=== PATIENT | female | born 1940 | race Caucasian/White ===

== ENCOUNTER 2016-10-29 13:22 | Inpatient (IN) | payer OTHER ==
[~2016-10-29] VITALS: Ht 162.6 cm; Wt 94.6 kg
[2016-10-29] MEDS ORDERED: DIAZEPAM 5 MG/ML 2ML SYRG ONE (13:41)
[2016-10-29] MEDS ORDERED: DIAZEPAM 5 MG/ML 2ML SYRG IV ONE (14:00)
[2016-10-29 14:30] LABS: Basophils # (auto) 0.1 uL; Basophils % (auto) 0.5 % (0.0-2.0); CONDITION Y; Eosinophils # (auto) 0.1 uL; Eosinophils % (auto) 0.6 % (0.0-7.0); Hematocrit 37.5 % (36.0-46.0); Hemoglobin 12.3 g/dL (12.2-16.2); Lymphocytes # (auto) 1.6 uL; Lymphocytes % (auto) 17.1 % (10.0-50.0); Mean Corpuscular Hemoglobin 27.4 pg (28.0-32.0); Mean Corpuscular Hgb Conc. 32.9 g/dL (32.0-36.0); Mean Corpuscular Volume 83.2 fL (80.0-100.0); Mean Platelet Volume 8.9 fL (7.4-10.4); Monocytes # (auto) 0.5 uL; Monocytes % (auto) 5.6 % (0.0-12.0); Neutrophils # (auto) 7.2 uL; Neutrophils % (auto) 76.2 % (37.0-80.0); Platelet Count (auto) 284 10^3/uL (140-450); White Blood Cell 9.4 10^3/uL (4.4-10.8)
[2016-10-29] MEDS ORDERED: SODIUM CHLORIDE 0.9% 1,000 ML IV ONE ×2 (14:59)
[2016-10-29 15:04] LABS: Albumin 3.1 g/dL (3.4-5.0); Anion Gap 12 (5-15); Aspartate Aminotransferase 21 U/L (15-37); BUN/Creatinine Ratio 14.7; Blood Urea Nitrogen 17 mg/dL (7-18); Calcium 8.4 mg/dL (8.5-10.1); Carbon Dioxide 22 mmol/L (21-32); Chloride 111 mmol/L (98-107); GFR African American 58 mL/min; GFR Non-African American 48 mL/min; Glucose 107 mg/dL (74-106); Potassium 3.3 mmol/L (3.5-5.1); Sodium 145 mmol/L (136-145)
[2016-10-29 15:11] LABS: Alkaline Phosphatase 345 U/L (45-117); Bilirubin, Total 0.4 mg/dL (0.2-1.0); Total Protein 6.8 g/dL (6.4-8.2)
[2016-10-29] MEDS ORDERED: POTASSIUM CHL 10% (20 MEQ/15ML) ORAL SOLN PO ONE (16:45)
[2016-10-29] MEDS ORDERED: cloNIDine HCL 0.1 MG TAB PO ONE (17:15)
[2016-10-29] MEDS ORDERED: DEXTROSE (50%) 50ML SYRG IV PRN (20:00)
[2016-10-29] MEDS ORDERED: NITROGLYCERIN 0.4 MG SL TAB SL PRN (20:00)
[2016-10-29] MEDS ORDERED: MORPHINE SULFATE 4 MG/ML SYRG IV PRN ×2 (20:00)
[2016-10-29] MEDS ORDERED: DOCUSATE SOD 100 MG CAP PO PRN (20:00)
[2016-10-29] MEDS ORDERED: HYDROcodone-ACET 5/325MG TAB PO PRN (20:00)
[2016-10-29] MEDS ORDERED: TEMAZEPAM 15 MG CAP PO PRN (20:00)
[2016-10-29] MEDS ORDERED: ACETAMINOPHEN 325 MG TAB PO PRN (20:00)
[2016-10-29] MEDS ORDERED: ONDANSETRON HCL 4 MG/2 ML VIAL IV PRN (20:00)
[2016-10-29] MEDS: cloNIDine HCL 0.1 MG TAB PO PRN (20:27)
[2016-10-29 20:33] LABS: B-Type Natriuretic Peptide 57.47 pg/mL (0-100)
[2016-10-29 20:34] LABS: Temperature: 22.3 C (20.0-25.0)
[2016-10-29] MEDS: InsuLIN REG 1unit/0.01ml Soln (100units/ml) SC SCH (22:00)
[2016-10-29] MEDS: ACCU-CHEK COMFORT CURVE STRIP VI SCH (22:13)
[2016-10-29] MEDS: SODIUM CHLOR 0.9% PF (SALINE LOCK) 10ML VIAL IV SCH (22:13)
[2016-10-29] MEDS: FAMOTIDINE 20 MG TAB PO SCH (22:16)
[2016-10-29] MEDS ORDERED: INSLANTI SC (22:18)
[2016-10-29] MEDS ORDERED: ATOR40TA52 PO (22:19)
[2016-10-29] MEDS ORDERED: LOSA25TA9 PO (22:19)
[2016-10-30 02:32] LABS: Urine Bilirubin Negative (Negative); Urine Color Yellow (Yellow); Urine Glucose Normal (Normal); Urine Ketone Negative (Negative); Urine Mucus FEW (None Seen); Urine Nitrite Negative (Negative); Urine RBC 1 /hpf (0 - 4); Urine Squamous Epithelial Cell FEW /hpf (<5); Urine Urobilinogen Normal (Negative)
[2016-10-30 02:33] LABS: Urine Blood 2+ /uL (Negative)
[2016-10-30] MEDS: SODIUM CHLOR 0.9% PF (SALINE LOCK) 10ML VIAL IV SCH ×3 (05:55→22:32)
[2016-10-30 06:15] LABS: Basophils # (auto) 0 uL; Basophils % (auto) 0.3 % (0.0-2.0); CONDITION Y; Eosinophils # (auto) 0 uL; Eosinophils % (auto) 0.4 % (0.0-7.0); Hematocrit 38.1 % (36.0-46.0); Hemoglobin 12.6 g/dL (12.2-16.2); Lymphocytes # (auto) 1.6 uL; Lymphocytes % (auto) 18.1 % (10.0-50.0); Mean Corpuscular Hemoglobin 27.3 pg (28.0-32.0); Mean Corpuscular Volume 82.8 fL (80.0-100.0); Mean Platelet Volume 8.4 fL (7.4-10.4); Monocytes # (auto) 0.7 uL; Monocytes % (auto) 7.7 % (0.0-12.0); Neutrophils # (auto) 6.6 uL; Neutrophils % (auto) 73.5 % (37.0-80.0); Platelet Count (auto) 287 10^3/uL (140-450); Red Cell Distribution Width 16.1 % (11.6-16.0)
[2016-10-30 06:42] LABS: BUN/Creatinine Ratio 16.1; Bilirubin, Total 0.5 mg/dL (0.2-1.0); Calcium 8.4 mg/dL (8.5-10.1); Total Protein 6.7 g/dL (6.4-8.2)
[2016-10-30 06:44] LABS: Potassium 3.7 mmol/L (3.5-5.1)
[2016-10-30] MEDS: InsuLIN REG 1unit/0.01ml Soln (100units/ml) SC SCH ×4 (07:00→22:00)
[2016-10-30] MEDS: ACCU-CHEK COMFORT CURVE STRIP VI SCH ×4 (07:00→22:00)
[2016-10-30] MEDS: INSULIN DETEMIR(LEVEMIR) 1unit/0.01ml Soln (100units/ml) SC SCH (07:00)
[2016-10-30] MEDS: Boost Glucose Control 8 Ounces PO SCH ×3 (08:45→17:51)
[2016-10-30 11:56] VITALS: BP 160/74
[2016-10-30] MEDS: MULTIPLE VITAMIN TAB PO SCH (12:07)
[2016-10-30] MEDS: FAMOTIDINE 20 MG TAB PO SCH ×2 (12:07→21:40)
[2016-10-30] MEDS: ENOXAPARIN SOD 40 MG/0.4 ML SYRINGE SC SCH (12:08)
[2016-10-30] MEDS ORDERED: cefTRIAXone 1GM/50ML D5W 50 ML IV ONE (12:15)
[2016-10-30] MEDS ORDERED: LORazepam 2MG/ML-1ML VIAL IV PRN (15:15)
[2016-10-30] MEDS: SODIUM CHLORIDE 0.9% 1,000 ML IV SCH (15:41)
[2016-10-30 17:05] VITALS: BP 143/77
[2016-10-30 20:00] VITALS: BP 146/70
[2016-10-30 22:00] VITALS: BP 146/70
[2016-10-31 04:48] VITALS: BP 138/60
[2016-10-31] MEDS: SODIUM CHLOR 0.9% PF (SALINE LOCK) 10ML VIAL IV SCH ×3 (05:47→21:53)
[2016-10-31] MEDS: ACCU-CHEK COMFORT CURVE STRIP VI SCH ×4 (06:01→21:53)
[2016-10-31] MEDS: InsuLIN REG 1unit/0.01ml Soln (100units/ml) SC SCH ×4 (06:01→21:53)
[2016-10-31] MEDS: INSULIN DETEMIR(LEVEMIR) 1unit/0.01ml Soln (100units/ml) SC SCH (06:01)
[2016-10-31 07:03] LABS: Basophils # (auto) 0 uL; Basophils % (auto) 0.5 % (0.0-2.0); CONDITION Y; Eosinophils # (auto) 0.1 uL; Eosinophils % (auto) 2.5 % (0.0-7.0); Hemoglobin 11.8 g/dL (12.2-16.2); Lymphocytes # (auto) 1.6 uL; Lymphocytes % (auto) 28.4 % (10.0-50.0); Mean Corpuscular Hemoglobin 27.8 pg (28.0-32.0); Mean Corpuscular Hgb Conc. 33.7 g/dL (32.0-36.0); Mean Corpuscular Volume 82.5 fL (80.0-100.0); Mean Platelet Volume 8.9 fL (7.4-10.4); Monocytes # (auto) 0.5 uL; Monocytes % (auto) 9.1 % (0.0-12.0); Neutrophils # (auto) 3.3 uL; Neutrophils % (auto) 59.5 % (37.0-80.0); Platelet Count (auto) 274 10^3/uL (140-450); Red Cell Distribution Width 16.3 % (11.6-16.0); White Blood Cell 5.5 10^3/uL (4.4-10.8)
[2016-10-31 07:30] LABS: BUN/Creatinine Ratio 14.1; Calcium 8.4 mg/dL (8.5-10.1); Potassium 3.8 mmol/L (3.5-5.1)
[2016-10-31 08:00] VITALS: BP 138/60
[2016-10-31] MEDS: Boost Glucose Control 8 Ounces PO SCH ×3 (08:00→17:55)
[2016-10-31 09:00] VITALS: BP 154/74
[2016-10-31] MEDS: cefTRIAXone 1GM/50ML D5W 50 ML IV SCH (09:45)
[2016-10-31] MEDS: FAMOTIDINE 20 MG TAB PO SCH ×2 (09:45→21:53)
[2016-10-31] MEDS: MULTIPLE VITAMIN TAB PO SCH (09:45)
[2016-10-31] MEDS: ENOXAPARIN SOD 40 MG/0.4 ML SYRINGE SC SCH (09:46)
[2016-10-31] MEDS: cloNIDine HCL 0.1 MG TAB PO PRN ×2 (11:43→13:53)
[2016-10-31] MEDS ORDERED: LOSA50TA6 PO (11:54)
[2016-10-31] MEDS ORDERED: ASPI81TA27 PO (11:58)
[2016-10-31] MEDS: SODIUM CHLORIDE 0.9% 1,000 ML IV SCH (12:15)
[2016-10-31 13:00] VITALS: BP 162/79
[2016-10-31 17:00] VITALS: BP 154/85
[2016-10-31 22:00] VITALS: BP 131/80
[2016-11-01 05:00] VITALS: BP 148/78
[2016-11-01] MEDS: SODIUM CHLOR 0.9% PF (SALINE LOCK) 10ML VIAL IV SCH (06:33)
[2016-11-01] MEDS: InsuLIN REG 1unit/0.01ml Soln (100units/ml) SC SCH (06:33)
[2016-11-01] MEDS: ACCU-CHEK COMFORT CURVE STRIP VI SCH ×2 (06:33→11:30)
[2016-11-01] MEDS: INSULIN DETEMIR(LEVEMIR) 1unit/0.01ml Soln (100units/ml) SC SCH (06:34)
[2016-11-01 08:00] VITALS: BP 154/85
[2016-11-01] MEDS: Boost Glucose Control 8 Ounces PO SCH ×2 (08:00→12:00)
[2016-11-01 08:43] VITALS: BP 163/84
[2016-11-01] MEDS: ENOXAPARIN SOD 40 MG/0.4 ML SYRINGE SC SCH (09:44)
[2016-11-01] MEDS: MULTIPLE VITAMIN TAB PO SCH (09:44)
[2016-11-01] MEDS: cefTRIAXone 1GM/50ML D5W 50 ML IV SCH (09:44)
[2016-11-01] MEDS: FAMOTIDINE 20 MG TAB PO SCH (09:44)
[2016-11-01] MEDS: SODIUM CHLORIDE 0.9% 1,000 ML IV SCH (12:15)
[2016-11-01 14:20] VITALS: BP 161/68
[2016-11-01 16:13] VITALS: BP 154/85
[2016-11-01 17:00] VITALS: BP 187/85
== END 2016-11-01 18:15 | disposition home health service (06) | DRG 689 ==
LOC: EDBD 13:22 → ER 13:27 → TELE 13:28 → TELE-E-ADS 10-30 10:50 → OVERFLOW 10-30 14:27 → TELE-E-ADS 10-30 14:30 → TELE-WESTW 10-30 15:20
PROVIDERS: ADMIT Internal Medicine; ATTEND Internal Medicine
DX: N39.0 Urinary tract infection, site not specified (principal); G93.41 Metabolic encephalopathy; G45.9 Transient cerebral ischemic attack, unspecified; E44.0 Moderate protein-calorie malnutrition; E87.6 Hypokalemia; N18.3 Chronic kidney disease, stage 3 (moderate); E78.5 Hyperlipidemia, unspecified; Z79.4 Long term (current) use of insulin; Z82.49 Family history of ischemic heart disease and other diseases of the circulatory system; Z83.3 Family history of diabetes mellitus; I12.9 Hypertensive chronic kidney disease with stage 1 through stage 4 chronic kidney disease, or unspecified chronic kidney disease; E11.21 Type 2 diabetes mellitus with diabetic nephropathy; E11.22 Type 2 diabetes mellitus with diabetic chronic kidney disease; Z90.49 Acquired absence of other specified parts of digestive tract; Z79.899 Other long term (current) drug therapy; Z84.1 Family history of disorders of kidney and ureter; Z80.9 Family history of malignant neoplasm, unspecified; Z79.82 Long term (current) use of aspirin; Z68.35 Body mass index [BMI] 35.0-35.9, adult
CPT/HCPCS: 36415; 70450; 70551; 71010; 80048; 80053; 80307; 80320; 81001; 82962; 83036; 83880; 84443; 84484; 85025; 87086; 92610; 93306; 93886; 95819; 96361; 96374; 97163; J0696; J1815; J2405

== ENCOUNTER 2018-07-26 16:07 | Emergency (ER) | payer OTHER ==
[~2018-07-26] VITALS: Ht 157.5 cm; Wt 95.3 kg
[~2018-07-26 16:07] MED LIST: ASPI81TA27 PO; ATOR40TA52 PO; INSLANTI SC; LOSA-46 PO
[2018-07-26 17:12] LABS: Albumin 3.2 g/dL (3.4-5.0); Anion Gap 7 (5-15); Blood Urea Nitrogen 17 mg/dL (7-18); Calcium 8.2 mg/dL (8.5-10.1); Carbon Dioxide 24 mmol/L (21-32); Chloride 111 mmol/L (98-107); Glucose 126 mg/dL (74-106); Potassium 3.6 mmol/L (3.5-5.1); Sodium 142 mmol/L (136-145)
[2018-07-26 17:19] LABS: Alanine Aminotransferase 33 U/L (13-56); Alkaline Phosphatase 351 U/L (45-117); Aspartate Aminotransferase 26 U/L (15-37); BUN/Creatinine Ratio 14.4; Bilirubin, Total 0.4 mg/dL (0.2-1.0); GFR African American 57 mL/min; GFR Non-African American 47 mL/min; Total Protein 7.3 g/dL (6.4-8.2)
[2018-07-26 17:43] LABS: Basophils # (auto) 0.1 uL; Basophils % (auto) 1.2 % (0.0-2.0); Eosinophils # (auto) 0.1 uL; Eosinophils % (auto) 0.8 % (0.0-7.0); Hematocrit 41.1 % (36.0-46.0); Hemoglobin 13.4 g/dL (12.2-16.2); Lymphocytes # (auto) 1.8 uL; Lymphocytes % (auto) 19.5 % (10.0-50.0); Mean Corpuscular Hemoglobin 28.4 pg (28.0-32.0); Mean Corpuscular Hgb Conc. 32.5 g/dL (32.0-36.0); Mean Corpuscular Volume 87.5 fL (80.0-100.0); Monocytes # (auto) 0.6 uL; Monocytes % (auto) 6.5 % (0.0-12.0); Neutrophils # (auto) 6.8 uL; Nucleated Red Blood Cells % 0.7 %; Platelet Count (auto) 292 10^3/uL (140-450); Red Cell Distribution Width 15.1 % (11.8-14.3); White Blood Cell 9.4 10^3/uL (4.4-10.8)
[2018-07-26] MEDS ORDERED: SODIUM CHLORIDE 0.9% 1,000 ML IV ONE (18:30)
[2018-07-26 19:56] LABS: Urine Bacteria MOD /hpf (None Seen); Urine Blood Negative /uL (Negative); Urine Specific Gravity 1.014 (1.001-1.035); Urine WBC 11 /hpf (0 - 5)
[2018-07-26] MEDS ORDERED: KETOROLAC TROMETH 60MG/2ML VIAL IM ONE (20:00)
[2018-07-26] MEDS ORDERED: cefTRIAXone 1GM/50ML D5W 50 ML IV ONE (20:15)
[2018-07-26 20:35] VITALS: BP 166/99
== END 2018-07-26 22:35 | disposition home or self-care (01) ==
LOC: EDBD 16:07 → ER 16:07
DX: E11.649 Type 2 diabetes mellitus with hypoglycemia without coma (principal); N39.0 Urinary tract infection, site not specified; E78.5 Hyperlipidemia, unspecified; I10 Essential (primary) hypertension; Z90.49 Acquired absence of other specified parts of digestive tract; Z79.4 Long term (current) use of insulin
CPT/HCPCS: 36415; 70450; 71045; 80053; 81001; 82962; 83880; 84484; 85025; 93005; 96361; 96365; 99284; J0696; J7030

== ENCOUNTER 2020-05-22 12:03 | Inpatient (IN) | payer OTHER ==
[~2020-05-22] VITALS: Ht 162.6 cm; Wt 74.8 kg
[~2020-05-22 12:03] MED LIST changes: +ASPI-543 PO; -ASPI81TA27 PO; -LOSA-46 PO; +LOSA-69 PO
[2020-05-22] MEDS ORDERED: SODIUM CHLORIDE 0.9% 1,000 ML IV ONE (12:15)
[2020-05-22 13:15] LABS: Basophils # (auto) 0 10 ^3/uL (0-0.2); Basophils % (auto) 0.6 % (0.0-2.0); Eosinophils # (auto) 0.1 10 ^3/uL (0-0.8); Hematocrit 45.3 % (36.0-46.0); Hemoglobin 14.8 g/dL (12.2-16.2); Lymphocytes # (auto) 1.8 10 ^3/uL (0.4-5.4); Lymphocytes % (auto) 28.1 % (10.0-50.0); Mean Corpuscular Hemoglobin 28.6 pg (28.0-32.0); Mean Corpuscular Hgb Conc. 32.7 g/dL (32.0-36.0); Mean Corpuscular Volume 87.6 fL (80.0-100.0); Monocytes # (auto) 0.5 10 ^3/uL (0-1.3); Monocytes % (auto) 7.7 % (0.0-12.0); Neutrophils % (auto) 62.6 % (37.0-80.0); Nucleated Red Blood Cells % 0.1 %; Platelet Count (auto) 265 10^3/uL (140-450); Red Blood Cells 5.17 10^6/uL (4.0-5.20); Red Cell Distribution Width 13.8 % (11.8-14.3); White Blood Cell 6.4 10^3/uL (4.4-10.8)
[2020-05-22 13:29] LABS: Albumin 2.9 g/dL (3.4-5.0); Anion Gap 5 (5-15); Blood Urea Nitrogen 14 mg/dL (7-18); Calcium 8.3 mg/dL (8.5-10.1); Carbon Dioxide 26 mmol/L (21-32); Chloride 104 mmol/L (98-107); Glucose 398 mg/dL (74-106); Potassium 4.1 mmol/L (3.5-5.1); Sodium 135 mmol/L (136-145)
[2020-05-22 13:35] LABS: Alanine Aminotransferase 18 U/L (13-56); Alkaline Phosphatase 266 U/L (45-117); Aspartate Aminotransferase 13 U/L (15-37); BUN/Creatinine Ratio 9.6; Bilirubin, Total 0.5 mg/dL (0.2-1.0); GFR African American 44 mL/min; GFR Non-African American 37 mL/min; Total Protein 7.1 g/dL (6.4-8.2)
[2020-05-22 14:02] LABS: INR 1.02 (0.9-1.15); Partial Thromboplastin Time 23.8 sec (23.0-31.2)
[2020-05-22 14:48] LABS: Urine Bacteria NONE SEEN /hpf (None Seen); Urine Blood Negative /uL (Negative); Urine Specific Gravity 1.018 (1.001-1.035); Urine WBC 1 /hpf (0 - 5)
[2020-05-22] MEDS ORDERED: ASPirin 81 mg TAB PO ONE (15:45)
[2020-05-22] MEDS ORDERED: MORPHINE SULF INJ 2 MG/ML SYRINGE 1ML IV PRN (17:00)
[2020-05-22] MEDS ORDERED: NITROGLYCERIN 0.4 MG SL TAB SL PRN (17:00)
[2020-05-22] MEDS ORDERED: ACCU-CHEK COMFORT CURVE STRIP VI SCH (17:23)
[2020-05-22] MEDS ORDERED: InsuLIN REG 1unit/0.01ml Soln (100units/ml) SC SCH (17:23)
[2020-05-22] MEDS ORDERED: DEXTROSE (50%) 50ML SYRG IV PRN ×2 (17:30→18:15)
[2020-05-22] MEDS ORDERED: hydrALAZINE HCL 20 MG/ML VL IV PRN (17:45)
[2020-05-22] MEDS ORDERED: InsuLIN REG 1unit/0.01ml Soln (100units/ml) SC ONE (18:15)
[2020-05-22] MEDS: InsuLIN REG 1unit/0.01ml Soln (100units/ml) SC SCH (21:30)
[2020-05-22] MEDS: ACCU-CHEK COMFORT CURVE STRIP VI SCH (21:31)
[2020-05-22 23:39] LABS: Cholesterol 228 mg/dL (< 200); HDL Cholesterol 52 mg/dL (40-59); LDL Cholesterol 162 mg/dL (< 100); Triglycerides 97 mg/dL (< 150)
[2020-05-23] MEDS: ACCU-CHEK COMFORT CURVE STRIP VI SCH ×4 (05:53→21:32)
[2020-05-23] MEDS: InsuLIN REG 1unit/0.01ml Soln (100units/ml) SC SCH ×4 (05:54→21:33)
[2020-05-23 07:18] LABS: Basophils # (auto) 0.1 10 ^3/uL (0-0.2); Basophils % (auto) 0.6 % (0.0-2.0); Eosinophils # (auto) 0 10 ^3/uL (0-0.8); Eosinophils % (auto) 0.1 % (0.0-7.0); Hematocrit 40.9 % (36.0-46.0); Hemoglobin 13.7 g/dL (12.2-16.2); Lymphocytes # (auto) 0.8 10 ^3/uL (0.4-5.4); Lymphocytes % (auto) 8.7 % (10.0-50.0); Mean Corpuscular Hemoglobin 28.9 pg (28.0-32.0); Mean Corpuscular Hgb Conc. 33.6 g/dL (32.0-36.0); Mean Corpuscular Volume 86.1 fL (80.0-100.0); Monocytes # (auto) 0.3 10 ^3/uL (0-1.3); Monocytes % (auto) 3.5 % (0.0-12.0); Neutrophils % (auto) 87.1 % (37.0-80.0); Platelet Count (auto) 258 10^3/uL (140-450); Red Blood Cells 4.75 10^6/uL (4.0-5.20); Red Cell Distribution Width 14.1 % (11.8-14.3); White Blood Cell 9.1 10^3/uL (4.4-10.8)
[2020-05-23 07:32] LABS: BUN/Creatinine Ratio 14.4; Calcium 8.5 mg/dL (8.5-10.1); Potassium 3.5 mmol/L (3.5-5.1)
[2020-05-23] MEDS: INSULIN LANTUS (GLARGINE) 1 /0.01ml (100units/ml) SC SCH (08:00)
[2020-05-23] MEDS ORDERED: LOSARTAN POTASSIUM 50 MG TAB PO SCH (10:00)
[2020-05-23] MEDS ORDERED: cefTRIAXone 1GM/50ML D5W 50 ML IV SCH (10:00)
[2020-05-23] MEDS ORDERED: PATIENTS OWN MEDICATION (Atorvastatin Calcium 40 MG) PO SCH (10:00)
[2020-05-23] MEDS: ASPirin 81 mg TAB PO SCH (10:22)
[2020-05-23] MEDS: PIPERACILLIN-TAZOB 3.375GM 100 ML IV SCH ×3 (10:22→23:57)
[2020-05-23] MEDS ORDERED: LORazepam 2MG/ML-1ML VIAL IM ONE (17:45)
[2020-05-23] MEDS ORDERED: LORazepam 2MG/ML-1ML VIAL IV ONE (18:30)
[2020-05-23 22:00] VITALS: BP 100/59
[2020-05-23] MEDS ORDERED: ATORVASTATIN 20 MG TAB PO SCH (22:00)
[2020-05-24 05:00] VITALS: BP 128/59
[2020-05-24] MEDS: PIPERACILLIN-TAZOB 3.375GM 100 ML IV SCH ×2 (06:22→12:24)
[2020-05-24] MEDS: ACCU-CHEK COMFORT CURVE STRIP VI SCH ×2 (06:23→11:27)
[2020-05-24] MEDS: InsuLIN REG 1unit/0.01ml Soln (100units/ml) SC SCH ×2 (06:24→11:30)
[2020-05-24] MEDS: INSULIN LANTUS (GLARGINE) 1 /0.01ml (100units/ml) SC SCH (06:24)
[2020-05-24] MEDS: ASPirin 81 mg TAB PO SCH (09:55)
== END 2020-05-24 16:56 | disposition home or self-care (01) | DRG 69 ==
LOC: ER 12:03 → TELE 16:58 → TELE-CENTR 05-23 16:51 → TELE-EAST 05-23 18:40
PROVIDERS: ADMIT Internal Medicine; ATTEND Internal Medicine
DX: G45.9 Transient cerebral ischemic attack, unspecified (principal); G93.41 Metabolic encephalopathy; I10 Essential (primary) hypertension; E78.5 Hyperlipidemia, unspecified; Z20.822 Contact with and (suspected) exposure to COVID-19; Z82.49 Family history of ischemic heart disease and other diseases of the circulatory system; Z83.3 Family history of diabetes mellitus; Z79.4 Long term (current) use of insulin; E11.65 Type 2 diabetes mellitus with hyperglycemia; N19 Unspecified kidney failure; E86.0 Dehydration
CPT/HCPCS: 36415; 51702; 70450; 70551; 71045; 80048; 80053; 80061; 81001; 82962; 83036; 84484; 85025; 85610; 85730; 87040; 87426; 93306; 93886; 96360; 96361; G0378; J1815; J2543

== ENCOUNTER 2020-06-03 09:19 | Inpatient (IN) | payer OTHER ==
[~2020-06-03] VITALS: Ht 157.5 cm; Wt 73.1 kg
[2020-06-03] MEDS ORDERED: PANTOPRAZOLE 40 MG/10 ML VIAL INJ IV ONE ×2 (09:59→10:00)
[2020-06-03] MEDS ORDERED: ONDANSETRON HCL 4 MG/2 ML VIAL ONE (09:59)
[2020-06-03] MEDS ORDERED: ONDANSETRON HCL 4 MG/2 ML VIAL IV ONE (10:00)
[2020-06-03] MEDS ORDERED: SODIUM CHLORIDE 0.9% 1,000 ML IV ONE ×2 (10:00→15:45)
[2020-06-03 10:35] LABS: Basophils # (auto) 0.1 10 ^3/uL (0-0.2); Basophils % (auto) 0.5 % (0.0-2.0); Eosinophils # (auto) 0 10 ^3/uL (0-0.8); Hematocrit 46.3 % (36.0-46.0); Lymphocytes # (auto) 1.7 10 ^3/uL (0.4-5.4); Lymphocytes % (auto) 10.3 % (10.0-50.0); Mean Corpuscular Hemoglobin 28.6 pg (28.0-32.0); Mean Corpuscular Hgb Conc. 32.3 g/dL (32.0-36.0); Mean Corpuscular Volume 88.4 fL (80.0-100.0); Monocytes # (auto) 0.7 10 ^3/uL (0-1.3); Monocytes % (auto) 4.4 % (0.0-12.0); Neutrophils # (auto) 13.9 10 ^3/uL (1.6-8.6); Neutrophils % (auto) 84.8 % (37.0-80.0); Platelet Count (auto) 344 10^3/uL (140-450); Red Blood Cells 5.24 10^6/uL (4.0-5.20); Red Cell Distribution Width 14.4 % (11.8-14.3); White Blood Cell 16.4 10^3/uL (4.4-10.8)
[2020-06-03 10:53] LABS: INR 1.06 (0.9-1.15); Partial Thromboplastin Time 23.4 sec (23.0-31.2)
[2020-06-03 10:58] LABS: Albumin 3.4 g/dL (3.4-5.0); Anion Gap 14 (5-15); Blood Urea Nitrogen 29 mg/dL (7-18); Carbon Dioxide 21 mmol/L (21-32); Chloride 99 mmol/L (98-107); Magnesium 2.2 mg/dL (1.6-2.6); Potassium 4.3 mmol/L (3.5-5.1); Sodium 134 mmol/L (136-145)
[2020-06-03 11:04] LABS: Lactic Acid w/Reflex 5.4 mmol/L (0.4-2.0)
[2020-06-03 11:04] LABS: Alanine Aminotransferase 22 U/L (13-56); Alkaline Phosphatase 276 U/L (45-117); Aspartate Aminotransferase 13 U/L (15-37); BUN/Creatinine Ratio 13.7; Bilirubin, Total 0.4 mg/dL (0.2-1.0); GFR African American 30 mL/min; GFR Non-African American 25 mL/min
[2020-06-03 11:09] LABS: Glucose 480 mg/dL (74-106)
[2020-06-03 11:10] LABS: Urine Bacteria FEW /hpf (None Seen); Urine Blood Negative /uL (Negative); Urine Hyaline Cast MOD /lpf (0 - 2); Urine Mucus FEW (None Seen); Urine Specific Gravity 1.021 (1.001-1.035); Urine WBC 7 /hpf (0 - 5)
[2020-06-03 11:18] LABS: Alcohol, Urine < 3.0 mg/dL (0-10); Amphetamine Screen, Urine NEGATIVE (NEGATIVE); Barbiturate Scree,Urine NEGATIVE (NEGATIVE); Benzodiazephine Screen, Urine NEGATIVE (NEGATIVE); Cannabinoid Screen, Urine NEGATIVE (NEGATIVE); Cocaine Screen, Urine NEGATIVE (NEGATIVE); Opiate Scree,Urine NEGATIVE (NEGATIVE); Phencyclidine Screen, Urine NEGATIVE (NEGATIVE)
[2020-06-03] MEDS ORDERED: InsuLIN REG 1unit/0.01ml Soln (100units/ml) IV ONE (12:15)
[2020-06-03] MEDS ORDERED: cefTRIAXone 1GM/50ML D5W 50 ML IV ONE (15:45)
[2020-06-03] MEDS ORDERED: NITROGLYCERIN 0.4 MG SL TAB SL PRN (15:45)
[2020-06-03] MEDS ORDERED: SODIUM CHLORIDE 0.9% 2,000 ML IV ONE (15:45)
[2020-06-03] MEDS ORDERED: DEXTROSE (50%) 50ML SYRG IV PRN (15:45)
[2020-06-03] MEDS ORDERED: MORPHINE SULF INJ 2 MG/ML SYRINGE 1ML IV PRN (15:45)
[2020-06-03 15:46] LABS: Lactic Acid w/Reflex 2.5 mmol/L (0.4-2.0)
[2020-06-03] MEDS ORDERED: PIPERACILLIN-TAZOB 2.25GM 50 ML IV ONE (16:15)
[2020-06-03 17:24] LABS: Anion Gap 14 (5-15); BUN/Creatinine Ratio 18.6; Blood Urea Nitrogen 29 mg/dL (7-18); Calcium 8.4 mg/dL (8.5-10.1); Carbon Dioxide 20 mmol/L (21-32); Chloride 105 mmol/L (98-107); GFR African American 41 mL/min; GFR Non-African American 34 mL/min; Glucose 270 mg/dL (74-106); Potassium 4.1 mmol/L (3.5-5.1); Sodium 139 mmol/L (136-145)
[2020-06-03] MEDS: InsuLIN REG 1unit/0.01ml Soln (100units/ml) SC SCH (17:42)
[2020-06-03] MEDS: ACCU-CHEK COMFORT CURVE STRIP VI SCH ×2 (17:45→22:36)
[2020-06-03] MEDS ORDERED: INSULIN LANTUS (GLARGINE) 1 /0.01ml (100units/ml) SC ONE (19:00)
[2020-06-03] MEDS ORDERED: InsuLIN REG 1unit/0.01ml Soln (100units/ml) SC SCH (22:00)
[2020-06-03] MEDS: PIPERACILLIN-TAZOB 2.25GM 50 ML IV SCH (22:37)
[2020-06-04] VITALS (8 sets, daily range): BP systolic 129–146; BP diastolic 68–72
[2020-06-04] MEDS: PIPERACILLIN-TAZOB 2.25GM 50 ML IV SCH ×3 (04:30→16:45)
[2020-06-04] MEDS: ACCU-CHEK COMFORT CURVE STRIP VI SCH ×3 (06:21→16:45)
[2020-06-04] MEDS: InsuLIN REG 1unit/0.01ml Soln (100units/ml) SC SCH ×3 (06:48→16:46)
[2020-06-04 09:03] LABS: BUN/Creatinine Ratio 16.8; Calcium 7.9 mg/dL (8.5-10.1); Potassium 3.9 mmol/L (3.5-5.1)
[2020-06-04 09:12] LABS: Basophils # (auto) 0.1 10 ^3/uL (0-0.2); Basophils % (auto) 0.7 % (0.0-2.0); Eosinophils # (auto) 0.1 10 ^3/uL (0-0.8); Eosinophils % (auto) 0.5 % (0.0-7.0); Hematocrit 35.4 % (36.0-46.0); Hemoglobin 11.9 g/dL (12.2-16.2); Lymphocytes # (auto) 1.8 10 ^3/uL (0.4-5.4); Lymphocytes % (auto) 17.7 % (10.0-50.0); Mean Corpuscular Hemoglobin 29.2 pg (28.0-32.0); Mean Corpuscular Hgb Conc. 33.7 g/dL (32.0-36.0); Mean Corpuscular Volume 86.7 fL (80.0-100.0); Monocytes # (auto) 0.8 10 ^3/uL (0-1.3); Monocytes % (auto) 7.5 % (0.0-12.0); Neutrophils # (auto) 7.5 10 ^3/uL (1.6-8.6); Neutrophils % (auto) 73.6 % (37.0-80.0); Platelet Count (auto) 222 10^3/uL (140-450); Red Blood Cells 4.08 10^6/uL (4.0-5.20); Red Cell Distribution Width 14.2 % (11.8-14.3); White Blood Cell 10.1 10^3/uL (4.4-10.8)
[2020-06-04] MEDS ORDERED: cefTRIAXone 1GM/50ML D5W 50 ML IV SCH (10:00)
== END 2020-06-04 20:12 | disposition home health service (06) | DRG 637 ==
LOC: EDUNIT# 09:19 → EDBD 09:19 → ER 09:19 → TELE 15:42 → TELE-EAST 06-04 02:18
PROVIDERS: ADMIT Internal Medicine; ATTEND Internal Medicine
DX: E11.65 Type 2 diabetes mellitus with hyperglycemia (principal); G93.41 Metabolic encephalopathy; E87.2 Acidosis; N17.9 Acute kidney failure, unspecified; E78.5 Hyperlipidemia, unspecified; E86.0 Dehydration; I10 Essential (primary) hypertension; J44.9 Chronic obstructive pulmonary disease, unspecified; Z79.4 Long term (current) use of insulin; Z82.49 Family history of ischemic heart disease and other diseases of the circulatory system; Z83.3 Family history of diabetes mellitus; Z86.61 Personal history of infections of the central nervous system; Z90.49 Acquired absence of other specified parts of digestive tract; K44.9 Diaphragmatic hernia without obstruction or gangrene; K57.30 Diverticulosis of large intestine without perforation or abscess without bleeding; Z20.822 Contact with and (suspected) exposure to COVID-19; Z79.82 Long term (current) use of aspirin; F03.90 Unspecified dementia, unspecified severity, without behavioral disturbance, psychotic disturbance, mood disturbance, and anxiety
CPT/HCPCS: 36415; 36600; 51702; 70450; 71045; 74176; 80048; 80053; 80307; 80320; 81001; 82805; 82962; 83605; 83735; 84484; 85025; 85610; 85730; 87040; 87426; 96361; 96374; 96375; C9113; G0378; J1815; J2405; J2543

== ENCOUNTER 2020-12-26 18:53 | Emergency (ER) | payer OTHER ==
[~2020-12-26] VITALS: Ht 167.6 cm; Wt 81.6 kg
[2020-12-26 22:25] LABS: Basophils # (auto) 0.1 10 ^3/uL (0-0.2); Basophils % (auto) 0.7 % (0.0-2.0); Eosinophils # (auto) 0.2 10 ^3/uL (0-0.8); Eosinophils % (auto) 2.5 % (0.0-7.0); Hematocrit 36.6 % (36.0-46.0); Hemoglobin 12.1 g/dL (12.2-16.2); Mean Corpuscular Volume 84.9 fL (80.0-100.0); Monocytes # (auto) 0.7 10 ^3/uL (0-1.3); Monocytes % (auto) 7.9 % (0.0-12.0); Neutrophils # (auto) 6.1 10 ^3/uL (1.6-8.6); Neutrophils % (auto) 66.9 % (37.0-80.0); Red Blood Cells 4.32 10^6/uL (4.0-5.20); Red Cell Distribution Width 14.4 % (11.8-14.3); White Blood Cell 9.1 10^3/uL (4.4-10.8)
[2020-12-26 22:40] LABS: Alanine Aminotransferase 64 U/L (13-56); Albumin 2.7 g/dL (3.4-5.0); Anion Gap 4 (5-15); Blood Urea Nitrogen 37 mg/dL (7-18); Calcium 8.3 mg/dL (8.5-10.1); Carbon Dioxide 26 mmol/L (21-32); Chloride 110 mmol/L (98-107); Glucose 251 mg/dL (74-106); Potassium 4.5 mmol/L (3.5-5.1); Sodium 140 mmol/L (136-145)
[2020-12-26 22:45] LABS: Alkaline Phosphatase 423 U/L (45-117); Aspartate Aminotransferase 29 U/L (15-37); BUN/Creatinine Ratio 19.1; Bilirubin, Total 0.2 mg/dL (0.2-1.0); GFR African American 32 mL/min; GFR Non-African American 26 mL/min; Total Protein 6.6 g/dL (6.4-8.2)
[2020-12-26] MEDS ORDERED: TETANUS-DIPTH-ACEL PERTUSSIS 0.5ML SYR Tdap IM ONE (23:00)
[2020-12-27 01:40] VITALS: BP 175/98
== END 2020-12-27 01:57 | disposition home or self-care (01) ==
LOC: EDBD 18:53 → ER 18:56
DX: S51.812A Laceration without foreign body of left forearm, initial encounter (principal); S09.90XA Unspecified injury of head, initial encounter; R07.89 Other chest pain; E11.9 Type 2 diabetes mellitus without complications; I10 Essential (primary) hypertension; Z86.73 Personal history of transient ischemic attack (TIA), and cerebral infarction without residual deficits; W01.0XXA Fall on same level from slipping, tripping and stumbling without subsequent striking against object, initial encounter; Y93.89 Activity, other specified; Y92.89 Other specified places as the place of occurrence of the external cause; Y99.8 Other external cause status
CPT/HCPCS: 12001; 36415; 70450; 71045; 72125; 80053; 83880; 84484; 85025; 90471; 90715; 93005

== ENCOUNTER 2021-06-06 17:58 | Inpatient (IN) | payer OTHER ==
[~2021-06-06] VITALS: Ht 172.7 cm; Wt 82.6 kg
[2021-06-06 18:49] LABS: Basophils # (auto) 0 10 ^3/uL (0-0.2); Basophils % (auto) 0.4 % (0.0-2.0); Eosinophils # (auto) 0 10 ^3/uL (0-0.8); Eosinophils % (auto) 0.1 % (0.0-7.0); Hematocrit 32.2 % (36.0-46.0); Hemoglobin 10.4 g/dL (12.2-16.2); Lymphocytes # (auto) 0.4 10 ^3/uL (0.4-5.4); Lymphocytes % (auto) 3.1 % (10.0-50.0); Mean Corpuscular Hemoglobin 27.9 pg (28.0-32.0); Mean Corpuscular Hgb Conc. 32.3 g/dL (32.0-36.0); Mean Corpuscular Volume 86.4 fL (80.0-100.0); Monocytes # (auto) 0.4 10 ^3/uL (0-1.3); Monocytes % (auto) 3.3 % (0.0-12.0); Neutrophils # (auto) 12.2 10 ^3/uL (1.6-8.6); Neutrophils % (auto) 93.1 % (37.0-80.0); Red Blood Cells 3.73 10^6/uL (4.0-5.20); Red Cell Distribution Width 14.7 % (11.8-14.3); White Blood Cell 13.1 10^3/uL (4.4-10.8)
[2021-06-06] MEDS ORDERED: SODIUM CHLORIDE 0.9% 1,000 ML IV ONE (19:00)
[2021-06-06] MEDS ORDERED: ACETAMINOPHEN 650 MG RECT SUPP PR ONE (19:00)
[2021-06-06 19:34] LABS: Urine Bacteria MANY /hpf (None Seen); Urine Blood 2+ /uL (Negative); Urine Hyaline Cast MANY /lpf (0 - 2); Urine Mucus MANY (None Seen); Urine WBC 31 /hpf (0 - 5)
[2021-06-06 19:36] LABS: Amphetamine Screen, Urine NEGATIVE (NEGATIVE); Barbiturate Scree,Urine NEGATIVE (NEGATIVE); Benzodiazephine Screen, Urine NEGATIVE (NEGATIVE); Cannabinoid Screen, Urine NEGATIVE (NEGATIVE); Cocaine Screen, Urine NEGATIVE (NEGATIVE); Opiate Scree,Urine NEGATIVE (NEGATIVE); Phencyclidine Screen, Urine NEGATIVE (NEGATIVE)
[2021-06-06 19:50] LABS: Alanine Aminotransferase 34 U/L (13-56); Alkaline Phosphatase 312 U/L (45-117); Anion Gap 6 (5-15); Aspartate Aminotransferase 35 U/L (15-37); BUN/Creatinine Ratio 15.9; Blood Urea Nitrogen 43 mg/dL (7-18); Carbon Dioxide 21 mmol/L (21-32); Chloride 114 mmol/L (98-107); GFR African American 22 mL/min; GFR Non-African American 18 mL/min; Glucose 309 mg/dL (74-106); Potassium 4.1 mmol/L (3.5-5.1); Sodium 141 mmol/L (136-145)
[2021-06-06 19:51] LABS: Albumin 2.4 g/dL (3.4-5.0); Bilirubin, Total 0.3 mg/dL (0.2-1.0); Calcium 7.9 mg/dL (8.5-10.1)
[2021-06-06] MEDS ORDERED: cefTRIAXone SOD 1,000 MG VL IV ONE (20:00)
[2021-06-06 21:16] LABS: Lactic Acid w/Reflex 2.7 mmol/L (0.4-2.0)
[2021-06-06] MEDS ORDERED: NITROGLYCERIN 0.4 MG SL TAB SL PRN (21:30)
[2021-06-06] MEDS ORDERED: ONDANSETRON HCL 4 MG/2 ML VIAL IV PRN (21:30)
[2021-06-06] MEDS ORDERED: DEXTROSE (50%) 50ML SYRG IV PRN (21:30)
[2021-06-06] MEDS ORDERED: LABETALOL HCL 5 MG/ML 4ML SYRINGE IV ONE (21:30)
[2021-06-06] MEDS ORDERED: MORPHINE SULFATE INJECTION 2 MG/ML SYRG IV PRN (21:30)
[2021-06-06] MEDS ORDERED: ACETAMINOPHEN 325 MG TAB PO PRN (21:30)
[2021-06-06] MEDS ORDERED: FUROSEMIDE 40 MG/4 ML VIAL IV ONE (21:30)
[2021-06-06] MEDS: ATORVASTATIN 20 MG TAB PO SCH (22:00)
[2021-06-07] MEDS: InsuLIN REG 1unit/0.01ml Soln (100units/ml) SC SCH ×4 (00:40→17:38)
[2021-06-07] MEDS: ACCU-CHEK COMFORT CURVE STRIP VI SCH ×4 (00:40→17:38)
[2021-06-07 05:19] VITALS: BP 97/74
[2021-06-07 08:46] VITALS: BP 132/69
[2021-06-07 09:12] LABS: Basophils # (auto) 0.1 10 ^3/uL (0-0.2); Basophils % (auto) 0.8 % (0.0-2.0); Eosinophils # (auto) 0 10 ^3/uL (0-0.8); Eosinophils % (auto) 0.2 % (0.0-7.0); Hematocrit 26.4 % (36.0-46.0); Lymphocytes # (auto) 1.6 10 ^3/uL (0.4-5.4); Lymphocytes % (auto) 15.3 % (10.0-50.0); Mean Corpuscular Hemoglobin 28.8 pg (28.0-32.0); Mean Corpuscular Hgb Conc. 34.2 g/dL (32.0-36.0); Mean Corpuscular Volume 84.2 fL (80.0-100.0); Monocytes # (auto) 0.9 10 ^3/uL (0-1.3); Monocytes % (auto) 8.5 % (0.0-12.0); Neutrophils # (auto) 7.9 10 ^3/uL (1.6-8.6); Neutrophils % (auto) 75.2 % (37.0-80.0); Nucleated Red Blood Cells % 0.1 %; Red Blood Cells 3.13 10^6/uL (4.0-5.20); Red Cell Distribution Width 14.7 % (11.8-14.3); White Blood Cell 10.5 10^3/uL (4.4-10.8)
[2021-06-07 09:24] LABS: Potassium 3.4 mmol/L (3.5-5.1)
[2021-06-07 09:36] LABS: Albumin 1.9 g/dL (3.4-5.0); BUN/Creatinine Ratio 14.7; Bilirubin, Total 0.7 mg/dL (0.2-1.0); Calcium 7.5 mg/dL (8.5-10.1)
[2021-06-07] MEDS ORDERED: FUROSEMIDE 40 MG TAB PO SCH (10:00)
[2021-06-07] MEDS ORDERED: LISINOPRIL 10 MG TAB PO SCH (10:00)
[2021-06-07] MEDS ORDERED: POTASSIUM CHL 20 Meq TABLET PO ONE (10:00)
[2021-06-07] MEDS: ASPirin 81 mg TAB PO SCH (10:04)
[2021-06-07] MEDS: PANTOPRAZOLE 40 MG TAB PO SCH (10:06)
[2021-06-07] MEDS: ENOXAPARIN SOD 30 MG/0.3 ML SYRINGE SC SCH (10:07)
[2021-06-07] MEDS: METOPROLOL TARTRATE 25 MG TAB PO SCH ×2 (12:52→22:39)
[2021-06-07 13:00] VITALS: BP 132/74
[2021-06-07] MEDS ORDERED: VANCOMYCIN PER PHARMACY 0 MG IV SCH (13:45)
[2021-06-07] MEDS ORDERED: VANCOMYCIN HCL 1000 MG VL IR ONE (13:45)
[2021-06-07] MEDS ORDERED: VANCOMYCIN 1GM/250ML 250 ML IV ONE (14:00)
[2021-06-07 17:33] VITALS: BP 140/70
[2021-06-07] MEDS ORDERED: FUROSEMIDE 20 MG/2 ML VIAL IV SCH (18:00)
[2021-06-07] MEDS: FUROSEMIDE 40 MG/4 ML VIAL IV SCH (18:13)
[2021-06-07 22:00] VITALS: BP 148/83
[2021-06-07] MEDS: ATORVASTATIN 20 MG TAB PO SCH (22:38)
[2021-06-07] MEDS: cefTRIAXone 1GM/50ML D5W 50 ML IV SCH (22:39)
[2021-06-08] MEDS: ACCU-CHEK COMFORT CURVE STRIP VI SCH ×4 (00:04→18:15)
[2021-06-08 05:00] VITALS: BP 152/76
[2021-06-08] MEDS: FUROSEMIDE 40 MG/4 ML VIAL IV SCH (06:00)
[2021-06-08] MEDS: InsuLIN REG 1unit/0.01ml Soln (100units/ml) SC SCH ×4 (06:00→18:44)
[2021-06-08 07:59] LABS: Basophils # (auto) 0.1 10 ^3/uL (0-0.2); Basophils % (auto) 1.1 % (0.0-2.0); Eosinophils # (auto) 0.1 10 ^3/uL (0-0.8); Eosinophils % (auto) 1.9 % (0.0-7.0); Hematocrit 26.4 % (36.0-46.0); Hemoglobin 8.8 g/dL (12.2-16.2); Lymphocytes # (auto) 1.8 10 ^3/uL (0.4-5.4); Lymphocytes % (auto) 26.5 % (10.0-50.0); Mean Corpuscular Hemoglobin 28.6 pg (28.0-32.0); Mean Corpuscular Hgb Conc. 33.4 g/dL (32.0-36.0); Mean Corpuscular Volume 85.6 fL (80.0-100.0); Monocytes # (auto) 0.7 10 ^3/uL (0-1.3); Neutrophils # (auto) 4.1 10 ^3/uL (1.6-8.6); Neutrophils % (auto) 60.5 % (37.0-80.0); Nucleated Red Blood Cells % 0.1 %; Red Blood Cells 3.08 10^6/uL (4.0-5.20); Red Cell Distribution Width 14.4 % (11.8-14.3); White Blood Cell 6.8 10^3/uL (4.4-10.8)
[2021-06-08 08:05] LABS: BUN/Creatinine Ratio 13.8; Calcium 7.6 mg/dL (8.5-10.1); Potassium 3.4 mmol/L (3.5-5.1)
[2021-06-08 09:00] VITALS: BP 157/77
[2021-06-08] MEDS ORDERED: VANCOMYCIN 1GM/250ML 250 ML IV ONE (10:00)
[2021-06-08] MEDS: ASPirin 81 mg TAB PO SCH (10:01)
[2021-06-08] MEDS: ENOXAPARIN SOD 30 MG/0.3 ML SYRINGE SC SCH (10:10)
[2021-06-08] MEDS: METOPROLOL TARTRATE 25 MG TAB PO SCH ×2 (10:10→21:39)
[2021-06-08] MEDS: PANTOPRAZOLE 40 MG TAB PO SCH (10:11)
[2021-06-08 13:00] VITALS: BP 136/65
[2021-06-08 17:00] VITALS: BP 165/88
[2021-06-08 20:00] VITALS: BP 152/74
[2021-06-08] MEDS: ATORVASTATIN 20 MG TAB PO SCH (21:38)
[2021-06-08] MEDS: cefTRIAXone 1GM/50ML D5W 50 ML IV SCH (21:38)
[2021-06-09] MEDS: ACCU-CHEK COMFORT CURVE STRIP VI SCH ×5 (05:19→23:58)
[2021-06-09 05:20] LABS: BUN/Creatinine Ratio 12.7; Basophils # (auto) 0.1 10 ^3/uL (0-0.2); Basophils % (auto) 0.9 % (0.0-2.0); Calcium 7.5 mg/dL (8.5-10.1); Eosinophils # (auto) 0.1 10 ^3/uL (0-0.8); Eosinophils % (auto) 1.6 % (0.0-7.0); Hemoglobin 9.9 g/dL (12.2-16.2); Lymphocytes # (auto) 1.3 10 ^3/uL (0.4-5.4); Lymphocytes % (auto) 18.3 % (10.0-50.0); Mean Corpuscular Hemoglobin 28.2 pg (28.0-32.0); Mean Corpuscular Hgb Conc. 33.1 g/dL (32.0-36.0); Mean Corpuscular Volume 85.1 fL (80.0-100.0); Monocytes # (auto) 0.6 10 ^3/uL (0-1.3); Neutrophils # (auto) 4.9 10 ^3/uL (1.6-8.6); Neutrophils % (auto) 70.2 % (37.0-80.0); Potassium 3.6 mmol/L (3.5-5.1); Red Blood Cells 3.52 10^6/uL (4.0-5.20); Red Cell Distribution Width 14.2 % (11.8-14.3)
[2021-06-09] MEDS: InsuLIN REG 1unit/0.01ml Soln (100units/ml) SC SCH ×4 (05:27→17:39)
[2021-06-09 09:00] VITALS: BP 184/75
[2021-06-09] MEDS: PANTOPRAZOLE 40 MG TAB PO SCH (10:47)
[2021-06-09] MEDS: METOPROLOL TARTRATE 25 MG TAB PO SCH ×2 (10:47→22:00)
[2021-06-09] MEDS: ASPirin 81 mg TAB PO SCH (10:48)
[2021-06-09] MEDS: ENOXAPARIN SOD 30 MG/0.3 ML SYRINGE SC SCH (10:48)
[2021-06-09 13:00] VITALS: BP 160/77
[2021-06-09] MEDS: SODIUM CHLORIDE 0.9% 1,000 ML IV SCH (13:00)
[2021-06-09 17:00] VITALS: BP 154/72
[2021-06-09] MEDS: amLODIPine BESYLATE 5 MG TAB PO SCH (17:47)
[2021-06-09] MEDS: ATORVASTATIN 20 MG TAB PO SCH (21:30)
[2021-06-09] MEDS: cefTRIAXone 1GM/50ML D5W 50 ML IV SCH (21:30)
[2021-06-09 21:49] VITALS: BP 141/56
[2021-06-10] MEDS: InsuLIN REG 1unit/0.01ml Soln (100units/ml) SC SCH ×4 (00:04→18:00)
[2021-06-10 05:32] VITALS: BP 123/56
[2021-06-10] MEDS: ACCU-CHEK COMFORT CURVE STRIP VI SCH ×3 (05:36→18:16)
[2021-06-10] MEDS: SODIUM CHLORIDE 0.9% 1,000 ML IV SCH ×2 (05:40→22:20)
[2021-06-10 05:55] LABS: Potassium 3.7 mmol/L (3.5-5.1)
[2021-06-10 05:59] LABS: BUN/Creatinine Ratio 13.3; Calcium 7.5 mg/dL (8.5-10.1)
[2021-06-10 09:00] VITALS: BP 159/68
[2021-06-10] MEDS: amLODIPine BESYLATE 5 MG TAB PO SCH (11:35)
[2021-06-10] MEDS: PANTOPRAZOLE 40 MG TAB PO SCH (11:36)
[2021-06-10] MEDS: ASPirin 81 mg TAB PO SCH (11:36)
[2021-06-10] MEDS: METOPROLOL TARTRATE 25 MG TAB PO SCH ×2 (11:36→21:48)
[2021-06-10] MEDS: ENOXAPARIN SOD 30 MG/0.3 ML SYRINGE SC SCH (11:37)
[2021-06-10 13:00] VITALS: BP 105/72
[2021-06-10 17:00] VITALS: BP 147/58
[2021-06-10] MEDS: cefTRIAXone 1GM/50ML D5W 50 ML IV SCH (21:00)
[2021-06-10] MEDS: ATORVASTATIN 20 MG TAB PO SCH (21:32)
[2021-06-10 22:00] VITALS: BP 143/53
[2021-06-11] MEDS: InsuLIN REG 1unit/0.01ml Soln (100units/ml) SC SCH ×2 (00:08→13:10)
[2021-06-11] MEDS: ACCU-CHEK COMFORT CURVE STRIP VI SCH ×3 (00:09→17:42)
[2021-06-11 05:00] VITALS: BP 132/70
[2021-06-11 07:52] LABS: BUN/Creatinine Ratio 13.3; Calcium 7.6 mg/dL (8.5-10.1); Potassium 3.7 mmol/L (3.5-5.1)
[2021-06-11] MEDS: SODIUM CHLORIDE 0.9% 1,000 ML IV SCH (08:00)
[2021-06-11 09:00] VITALS: BP 139/72
[2021-06-11] MEDS: PANTOPRAZOLE 40 MG TAB PO SCH (11:29)
[2021-06-11] MEDS: amLODIPine BESYLATE 5 MG TAB PO SCH (11:29)
[2021-06-11] MEDS: METOPROLOL TARTRATE 25 MG TAB PO SCH ×2 (11:29→13:10)
[2021-06-11] MEDS: ENOXAPARIN SOD 30 MG/0.3 ML SYRINGE SC SCH (11:30)
[2021-06-11] MEDS: ASPirin 81 mg TAB PO SCH (11:30)
[2021-06-11] MEDS ORDERED: ATOR10TA PO (14:43)
[2021-06-11] MEDS ORDERED: MET25T PO (14:43)
[2021-06-11] MEDS ORDERED: CEPH-509 PO (14:43)
[2021-06-11] MEDS ORDERED: ASPI1CHW15 PO (14:43)
[2021-06-11] MEDS ORDERED: AMLO-496 PO (14:43)
[2021-06-11 17:00] VITALS: BP 127/67
== END 2021-06-11 18:30 | disposition home or self-care (01) | DRG 871 ==
LOC: EDBD 17:58 → ER 18:02 → TELE 21:28 → EDUNIT# 21:28 → TELE-WESTW 06-07 04:37
PROVIDERS: ADMIT Nurse Practitioner; ATTEND Internal Medicine Geriatric Medicine
DX: A41.9 Sepsis, unspecified organism (principal); G93.41 Metabolic encephalopathy; E43 Unspecified severe protein-calorie malnutrition; I50.33 Acute on chronic diastolic (congestive) heart failure; I21.4 Non-ST elevation (NSTEMI) myocardial infarction; N39.0 Urinary tract infection, site not specified; N17.9 Acute kidney failure, unspecified; E87.0 Hyperosmolality and hypernatremia; I13.0 Hypertensive heart and chronic kidney disease with heart failure and stage 1 through stage 4 chronic kidney disease, or unspecified chronic kidney disease; F03.90 Unspecified dementia, unspecified severity, without behavioral disturbance, psychotic disturbance, mood disturbance, and anxiety; D63.8 Anemia in other chronic diseases classified elsewhere; E11.22 Type 2 diabetes mellitus with diabetic chronic kidney disease; Z20.822 Contact with and (suspected) exposure to COVID-19; E66.01 Morbid (severe) obesity due to excess calories; E78.5 Hyperlipidemia, unspecified; E87.6 Hypokalemia; B95.8 Unspecified staphylococcus as the cause of diseases classified elsewhere; N18.9 Chronic kidney disease, unspecified; Z79.4 Long term (current) use of insulin; Z82.49 Family history of ischemic heart disease and other diseases of the circulatory system; Z83.3 Family history of diabetes mellitus; Z86.73 Personal history of transient ischemic attack (TIA), and cerebral infarction without residual deficits; Z68.27 Body mass index [BMI] 27.0-27.9, adult
CPT/HCPCS: 36415; 70450; 71045; 74018; 74176; 76775; 80048; 80053; 80202; 80307; 81001; 82962; 83605; 83735; 83880; 84484; 85025; 87040; 87077; 87186; 87426; 93306; 96361; 96374; 96375; 97163; 99291; G0378; J0696; J1815